=== PATIENT | female | born 1975 | race Caucasian/White ===

== ENCOUNTER → 2017-02-23 | Outpatient (CLI) | payer BC ==
--- NOTE | 2017-02-24 12:25 | WWHP ---
DATE OF SERVICE: 02/23/2017 CHIEF COMPLAINT: The patient is here for her routine gynecologic exam and mammogram. HPI: This is a 42-year-old G2, P1-1-0-2 with an LMP of 02/04/2017. The patient' s is status post vasectomy and she is without gynecologic complaints. PAST MEDICAL HISTORY: Basal cell carcinoma of the back removed in 2012 and history of kidney stones in 2014. MEDICATIONS: None. Allergies to Keflex. PAST SURGICAL HISTORY: in 2001. Removal of skin lesion in 2012. 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 SOCIAL HISTORY: She denies tobacco and drug use and has about 2 alcoholic drinks per month. 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 Family history is unchanged from the 2015 H&P. REVIEW OF SYSTEMS: She has gain 4 pounds over the last 2 years. She denies respiratory, cardiac or GI problems. PHYSICAL EXAM: Blood pressure 109/58, height 5 feet 11 inches, weight 155 pounds, temperature 98.5, pulse 71. This is a well-developed, well nourished white female who is alert and oriented x3 in no acute distress. HEENT is within normal limits. NECK: Supple without mass or thyromegaly. CHEST AND LUNGS: Clear to auscultation. HEART: Regular rate and rhythm. Breasts are without mass or discharge. Axillary exam is negative for adenopathy. BACK: Negative for CVA tenderness. ABDOMEN: Soft, nontender without palpable masses. PELVIC EXAM: Normal external genitalia. Cervix and vagina appear normal. The cervix was slightly friable upon doing a PAP smear but there are no lesions noted. There is no evidence of prolapse. The uterus is anterior, nongravid size and nontender. There are no palpable adnexal masses or tenderness. Rectal exam is negative for mass or tenderness and is negative of occult blood. EXTREMITIES: Nontender. IMPRESSION: A 42-year-old gynecologically healthy female whose is status post vasectomy. PLAN: 1. PAP smear was performed. 2. Self-breast examination was discussed. 3. Mammogram will be done today. 4. Osteoporosis prevention was discussed. 5. She will return in 1 year. KHANH
--- NOTE | 2017-02-25 08:17 | MM ---
Reason for exam: screening (asymptomatic). Last mammogram was performed 2 years and 4 months ago. History: Patient history of other cancer. Took hormonal contraceptives for 8 years. Physical Findings: A clinical breast exam by your physician is recommended on an annual basis and results should be correlated with mammographic findings. MG 3D Screening Mammo W/Cad Bilateral CC and MLO view(s) were taken. Prior study comparison: October 23, 2014, bilateral MG screening mammo w CAD. April 03, 2013, bilateral digital screening mammo w/CAD. The breast tissue is heterogeneously dense. This may lower the sensitivity of mammography. No significant changes when compared with prior studies. ASSESSMENT: Negative, BI-RAD 1 RECOMMENDATION: Routine screening mammogram of both breasts in 1 year.
== END ==
LOC: WWCWWP 13:08
PROVIDERS: ATTEND Obstetrics & Gynecology
DX: Z12.31 Encounter for screening mammogram for malignant neoplasm of breast (principal)
CPT/HCPCS: 77063; G0202

== ENCOUNTER → 2019-05-02 | Outpatient (CLI) | payer BC ==
[2019-05-02 16:11] VITALS: BP 105/60; PULSE 68; RESP 16; TEMP 98.3; BMI 19.2
--- NOTE | 2019-05-02 16:48 | P.HPOB ---
History of Present Illness H&P Date: 05/02/19 Chief Complaint: The patient is here for her routine gynecologic exam and ma mmogram. This is a 44-year-old with an LMP of 04/17/19. The patient's is status post vasectomy. She is without gynecologic complaints and states her menses are regular every month. Review of Systems The patient has lost 17 pounds over the last year. She denies respiratory, cardiac, or G.I. problems. Past Medical History Past Medical History: Cancer Additional Past Medical History / Comment(s): Basal cell skin cancer in 2012 removed from her back. Kidney stones. 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 History of Any Multi-Drug Resistant Organisms: None Reported Past Surgical History: Section Additional Past Surgical History / Comment(s): Removal of skin lesion in 2012. 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 - Past Family History Mother Family Medical History: Cancer Additional Family Medical History / Comment(s): Cervical and uterine cancer. Father Additional Family Medical History / Comment(s): Heart valve disease. A grandfather had lung cancer. A grandmother had melanoma. Another grandmother had diabetes. Medications and Allergies Home Medications Medication Instructions Recorded Confirmed Type No Known Home Medications 05/02/19 05/02/19 History Allergies Allergy/AdvReac Type Severity Reaction Status Date / Time cephalexin [From Keflex] Allergy Swelling Unverified 05/02/19 16:11 Exam Vital Signs Temp Pulse Resp BP Pulse Ox 05/02/19 16:01 98.3 F 68 16 105/60 93 L Intake and Output 05/02/19 05/02/19 05/02/19 06:59 14:59 22:59 Other: Weight 62.596 kg Height 5'11", weight 138 pounds, BMI 19.2. This is a well-developed well-nourished white female who is alert and oriented times 3 in no acute distress. HEENT: Within normal limits. NECK: Supple without mass or thyromegaly. CHEST AND LUNGS: Clear to auscultation. HEART: Regular rate and rhythm. BREASTS: Are without mass or discharge. AXILLARY EXAM: Negative for adenopathy. BACK: Negative for CVA tenderness. ABDOMEN: Soft, nontender, without palpable masses. PELVIC EXAM: Normal external genitalia. Cervix and vagina appear normal. There is no unusual discharge. There is no evidence of prolapse. The uterus is midposition, nongravid size and nontender. There are no palpable adnexal masses or tenderness. RECTAL EXAM: negative for mass or tenderness and is negative for occult blood. EXTREMITIES: Nontender. IMPRESSION: 1. 44-year-old female whose is status post vasectomy with normal gynecologic exam. PLAN: 1. Pap smear was performed. 2. Self breast awareness was discussed with the patient. 3. Screening mammogram was done today. 4. Osteoporosis prevention was discussed. I have stressed the importance of adequate calcium, vitamin D and regular exercise. Recommended amounts of calcium and vitamin D were also discussed. 5. She was advised to return in one year for her annual well woman exam.
--- NOTE | 2019-05-03 12:12 | MM ---
Reason for exam: screening (asymptomatic). Last mammogram was performed 2 years and 2 months ago. History: Patient history of other cancer. Took hormonal contraceptives for 8 years. Physical Findings: A clinical breast exam by your physician is recommended on an annual basis and results should be correlated with mammographic findings. MG 3D Screening Mammo W/Cad Bilateral CC and MLO view(s) were taken. Prior study comparison: February 23, 2017, bilateral MG 3d screening mammo w/cad. October 23, 2014, bilateral MG screening mammo w CAD. The breast tissue is extremely dense which could obscure a lesion on mammography. No significant changes when compared with prior studies. ASSESSMENT: Negative, BI-RAD 1 RECOMMENDATION: Routine screening mammogram of both breasts in 1 year.
--- NOTE | 2019-05-10 12:06 | P.PN ---
Progress Note - Text Progress Note Date: 05/10/19 OUTPATIENT FOLLOW-UP NOTE TEST(S)/RESULTS: test results from 05/02/2019 include negative Pap smear and benign mammogram. METHOD OF NOTIFICATION: a message with these results was left on the patient's voice mail. PATIENT COMMENTS: DIAGNOSIS: negative Pap smear and benign mammogram. DISCUSSION: PLAN: the patient is to return in one year for her annual well woman exam.
== END | disposition home or self-care (01) ==
LOC: WWCWWP 15:48
PROVIDERS: ATTEND Obstetrics & Gynecology
DX: Z12.31 Encounter for screening mammogram for malignant neoplasm of breast (principal)
CPT/HCPCS: 77063; 77067

== ENCOUNTER 2020-05-24 18:42 | Emergency (ER) | payer BC ==
[2020-05-24 18:45] VITALS: TEMP 98.4
[2020-05-24] MEDS ORDERED: SODIUM CHLORIDE 0.9% 1,000 ML IV STA ×2 (19:10)
[2020-05-24] MEDS ORDERED: SODIUM CHLORIDE 0.9% 500 ML 500 ML IV STA (19:10)
[2020-05-24] MEDS ORDERED: MORPHINE SULFATE 4 MG/ML SYRINGE IV STA (19:10)
[2020-05-24] MEDS ORDERED: ONDANSETRON 4 MG/2 ML VIAL IVP STA (19:10)
[2020-05-24] MEDS ORDERED: KETOROLAC 15 MG/ML 1 ML VIAL IVP STA (19:10)
--- NOTE | 2020-05-24 19:21 | ED ---
Abdominal Pain HPI - General Chief Complaint: Abdominal Pain Stated Complaint: Kidney stone Time Seen by Provider: 05/24/20 18:51 Source: patient, RN notes reviewed, old records reviewed Mode of arrival: ambulatory Limitations: no limitations - History of Present Illness Initial Comments: This is a 45-year-old female DF. She presents today for evaluation regarding abdominal pain. Pain and feels as a prior kidney stone. Patient poor strain currently secondary to active vomiting she is able to say that she has never vomited from kidney stones before but the pain this time is severe and started last night. Denying fevers. MD Complaint: abdominal pain, flank pain -: days(s) Location: bilateral flank Radiation: none Migration to: bilateral flank Severity: severe Severity scale (1-10): 10 Quality: stabbing, aching Consistency: constant Improves With: nothing Worsens With: nothing - Related Data Home Medications Medication Instructions Recorded Confirmed No Known Home Medications 05/02/19 05/02/19 Allergies Allergy/AdvReac Type Severity Reaction Status Date / Time cephalexin [From Keflex] Allergy Swelling Verified 05/24/20 18:45 Review of Systems ROS Statement: Those systems with pertinent positive or pertinent negative responses have been documented in the HPI. ROS Other: All systems not noted in ROS Statement are negative. Past Medical History Past Medical History: Cancer Additional Past Medical History / Comment(s): Basal cell skin cancer in 2012 re moved from her back. Kidney stones. 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 History of Any Multi-Drug Resistant Organisms: None Reported Past Surgical History: Section Additional Past Surgical History / Comment(s): Removal of skin lesion in 2012. Past Psychological History: No Psychological Hx Reported Smoking Status: Never smoker Past Alcohol Use History: Occasional Past Drug Use History: None Reported - Past Family History Mother Family Medical History: Cancer Additional Family Medical History / Comment(s): Cervical and uterine cancer. Father Additional Family Medical History / Comment(s): Heart valve disease. A grandfather had lung cancer. A grandmother had melanoma. Another grandmother had diabetes. General Exam Limitations: no limitations General appearance: alert, in no apparent distress Head exam: Present: atraumatic, normocephalic, normal inspection Eye exam: Present: normal appearance, PERRL, EOMI. Absent: scleral icterus, conjunctival injection, periorbital swelling ENT exam: Present: normal exam, mucous membranes moist Neck exam: Present: normal inspection. Absent: tenderness, meningismus, lymphadenopathy Respiratory exam: Present: normal lung sounds bilaterally. Absent: respiratory distress, wheezes, rales, rhonchi, stridor Cardiovascular Exam: Present: regular rate, normal rhythm, normal heart sounds. Absent: systolic murmur, diastolic murmur, rubs, gallop, clicks GI/Abdominal exam: Present: soft, normal bowel sounds. Absent: distended, tenderness, guarding, rebound, rigid Extremities exam: Present: normal inspection, full ROM, normal capillary refill. Absent: tenderness, pedal edema, joint swelling, calf tenderness Back exam: Present: normal inspection Neurological exam: Present: alert, oriented X3, CN II-XII intact Psychiatric exam: Present: normal affect, normal mood Skin exam: Present: warm, dry, intact, normal color. Absent: rash Course Vital Signs 05/24/20 18:43 Temperature 98.4 F Pulse Rate 56 L Respiratory 18 Rate Blood Pressure 145/76 O2 Sat by Pulse 99 Oximetry - Reevaluation(s) Reevaluation #1: 05/24/20 19:21 Medical record is reviewed Reevaluation #2: 05/24/20 19:21 Pain is improved Reevaluation #3: 05/24/20 20:35 Patient symptoms are again significantly improved, patient feels better currently, informed of results and questions are answered Medical Decision Making - Medical Decision Making 45 female DF for evaluation of flank pain positive kidney stone. Patient will be given pain control - Lab Data Result diagrams: 05/24/20 19:19 05/24/20 19:19 Lab Results 05/24/20 05/24/20 Range/Units 19:19 19:19 WBC 7.2 (3.8-10.6) k/uL RBC 4.08 (3.80-5.40) m/uL Hgb 12.9 (11.4-16.0) gm/dL Hct 39.7 (34.0-46.0) % MCV 97.2 (80.0-100.0) fL MCH 31.6 (25.0-35.0) pg MCHC 32.5 (31.0-37.0) g/dL RDW 12.5 (11.5-15.5) % Plt Count 293 (150-450) k/uL Neutrophils % 61 % Lymphocytes % 27 % Monocytes % 7 % Eosinophils % 2 % Basophils % 1 % Neutrophils # 4.4 (1.3-7.7) k/uL Lymphocytes # 1.9 (1.0-4.8) k/uL Monocytes # 0.5 (0-1.0) k/uL Eosinophils # 0.2 (0-0.7) k/uL Basophils # 0.1 (0-0.2) k/uL Sodium 138 (137-145) mmol/L Potassium 4.0 (3.5-5.1) mmol/L Chloride 105 (98-107) mmol/L Carbon Dioxide 27 (22-30) mmol/L Anion Gap 6 mmol/L BUN 21 H (7-17) mg/dL Creatinine 0.80 (0.52-1.04) mg/dL Est GFR (CKD-EPI)AfAm >90 (>60 ml/min/1.73 sqM) Est GFR (CKD-EPI)NonAf 89 (>60 ml/min/1.73 sqM) Glucose 109 H (74-99) mg/dL Calcium 9.7 (8.4-10.2) mg/dL Total Bilirubin 0.3 (0.2-1.3) mg/dL AST 22 (14-36) U/L ALT 13 (4-34) U/L Alkaline Phosphatase 64 (38-126) U/L Total Protein 7.0 (6.3-8.2) g/dL Albumin 4.6 (3.5-5.0) g/dL Amylase 69 (30-110) U/L Lipase 158 (23-300) U/L - Radiology Data Radiology results: report reviewed (CT abdomen and pelvis is positive for kidney stones), image reviewed Disposition Clinical Impression: Right ureteral calculus, Abdominal pain Disposition: HOME SELF-CARE Condition: Good Instructions (If sedation given, give patient instructions): Kidney Stones (ED) Is patient prescribed a controlled substance at d/c from ED?: No Referrals: David Saucedo MD [Primary Care Provider] - 1-2 days
[2020-05-24 19:32] LABS: Basophils # (A) 0.1 k/uL (0-0.2); Basophils % (A) 1 %; Eosinophils # (A) 0.2 k/uL (0-0.7); Eosinophils % (A) 2 %; HCT 39.7 % (34.0-46.0); HGB 12.9 gm/dL (11.4-16.0); Lymphocytes # (A) 1.9 k/uL (1.0-4.8); Lymphocytes % (A) 27 %; MCH 31.6 pg (25.0-35.0); MCHC 32.5 g/dL (31.0-37.0); MCV 97.2 fL (80.0-100.0); Monocytes # (A) 0.5 k/uL (0-1.0); Monocytes % (A) 7 %; Neutrophils # (A) 4.4 k/uL (1.3-7.7); Neutrophils % (A) 61 %; Platelet Count 293 k/uL (150-450); RBC 4.08 m/uL (3.80-5.40); RDW 12.5 % (11.5-15.5); WBC 7.2 k/uL (3.8-10.6)
[2020-05-24 19:38] LABS: ALT 13 U/L (4-34); AST 22 U/L (14-36); African American GFR (CKD) >90 (>60 ml/min/1.73 sqM); Albumin 4.6 g/dL (3.5-5.0); Alkaline Phosphatase 64 U/L (38-126); Amylase 69 U/L (30-110); Anion Gap 6 mmol/L; Blood Urea Nitrogen 21 mg/dL (7-17); Calcium 9.7 mg/dL (8.4-10.2); Carbon Dioxide 27 mmol/L (22-30); Chloride 105 mmol/L (98-107); Glucose 109 mg/dL (74-99); Non-African American GFR(CKD) 89 (>60 ml/min/1.73 sqM); Sodium 138 mmol/L (137-145); Total Bilirubin 0.3 mg/dL (0.2-1.3)
--- NOTE | 2020-05-24 20:09 | CT ---
EXAMINATION TYPE: CT abdomen pelvis wo con DATE OF EXAM: 05/24/2020 COMPARISON: None HISTORY: Right flank pain CT DLP: 441 mGycm Automated exposure control for dose reduction was used. Images were obtained from the diaphragm to the floor the pelvis with no contrast. Lung bases are clear of consolidation. There is no pleural effusion. Heart is normal. There is no per icardial effusion. Liver spleen stomach pancreas appear intact. Bile ducts are not dilated. Gallbladd er appears normal. There is no adrenal mass. There are numerous bilateral renal calculi that measure up to 4 mm. There i s right-sided hydronephrosis and hydroureter. There appears to be a stone in the lower right ureter i n the pelvis at the level of the acetabulum measuring 4 mm. The bladder distends smoothly. Uterus is anteverted. There is 4 similar mass on the anterior wall of the uterus consistent with fibroid. The cul-de-sac is clear. There is no inguinal hernia. Appendix is medial and appears normal. Lumbar v ertebra have normal alignment. Posterior elements are intact. Bony pelvis is intact. Hip joints are i ntact. There is no mesenteric edema. There is no ascites. There is no free air. There is no sign of a bowel obstruction. Fecal pattern is fairly normal. IMPRESSION: . Bilateral multiple renal calculi. Obstructing calculus lower right ureter with right-sided hydronep hrosis and hydroureter.
[2020-05-24] MEDS ORDERED: ACET/COD 300 MG/30 MG STARTER PACK 6 TAB BTL PO STA (20:34)
[2020-05-24] MEDS ORDERED: ONDANSETRON 4 MG ODT STARTER PACK 2 TAB BTL PO STA (20:34)
[2020-05-24] MEDS ORDERED: IBUPROFEN 600 MG STARTER PACK 4 TAB BTL PO STA (20:34)
[2020-05-24] MEDS ORDERED: TAMSULOSIN 0.4 MG CAP.ER.24H PO STA (20:34)
[2020-05-24] MEDS ORDERED: Acetaminophen-Codeine 300-30mg TAB PO STA (20:34)
[2020-05-24] MEDS ORDERED: ONDANSETRON ODT 4 MG TAB PO STA (20:34)
[2020-05-24 21:09] VITALS: BP 129/77; PULSE 61; RESP 20
[2020-05-24 21:20] LABS: Appearance,Urine Clear (Clear); Bacteria,Urine Rare /hpf; Bilirubin,Urine Negative (Negative); Blood,Urine Large (Negative); Calcium Oxalate Crystals,Urine Rare /hpf; Color,Urine Light Yellow; Glucose,Urine (UA) Negative (Negative); Ketones,Urine Negative (Negative); Leukocyte Esterase,Urine Negative (Negative); Mucus,Urine Rare /hpf; Nitrite,Urine Negative (Negative); PH, Urine 6.5 (5.0-8.0); Protein,Urine Negative (Negative); RBC,Urine >182 /hpf (0-5); Specific Gravity,Urine 1.011 (1.001-1.035); Squamous Epithelial Cell,Urine <1 /hpf (0-4); Urobilinogen,Urine <2.0 mg/dL (<2.0); WBC,Urine 8 /hpf (0-5)
== END 2020-05-24 21:08 | disposition home or self-care (01) ==
LOC: EC 18:42
DX: N20.0 Calculus of kidney (principal); Z85.828 Personal history of other malignant neoplasm of skin; Z88.1 Allergy status to other antibiotic agents; Z80.49 Family history of malignant neoplasm of other genital organs
CPT/HCPCS: 36415; 80053; 82150; 83690; 85025; 81001; 74176; 99285; 96374; 96375 ×2; 96361; J2270; J2405; J1885; S0119

== ENCOUNTER 2020-08-09 15:51 | Emergency (ER) | payer BC ==
[2020-08-09 16:01] VITALS: RESP 16; TEMP 98
[2020-08-09] MEDS ORDERED: MORPHINE SULFATE 4 MG/ML SYRINGE IVP STA (16:13)
--- NOTE | 2020-08-09 16:17 | ED ---
Upper Extremity HPI - General Chief Complaint: Extremity Injury, Upper Stated Complaint: L Arm Injury Time Seen by Provider: 08/09/20 16:06 Source: patient Mode of arrival: wheelchair Limitations: no limitations - History of Present Illness Initial Comments: 45-year-old female presenting to the emergency department with a chief complaint of left arm pain. Patient reports the incident occurred about one hour prior to arrival while she was hiking, slipped and fell on outstretched hand. Patient reports obvious bony deformity in the left distal forearm. Patient reports sharp pain but she still able to move her fingers. Denies any numbness or tingl ing. Denies taking medication to alleviate the symptoms. States any movement exacerbates the pain. Reports limited range of motion in the wrist and hand due to pain. - Related Data Home Medications Medication Instructions Recorded Confirmed No Known Home Medications 05/02/19 05/02/19 Allergies Allergy/AdvReac Type Severity Reaction Status Date / Time cephalexin [From Keflex] Allergy Swelling Verified 05/24/20 18:45 Review of Systems ROS Statement: Those systems with pertinent positive or pertinent negative responses have been documented in the HPI. ROS Other: All systems not noted in ROS Statement are negative. Past Medical History Past Medical History: Cancer Additional Past Medical History / Comment(s): Basal cell skin cancer in 2013 removed from her back. Kidney stones. 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 History of Any Multi-Drug Resistant Organisms: None Reported Past Surgical History: Section Additional Past Surgical History / Comment(s): Removal of skin lesion in 2012. Past Psychological History: No Psychological Hx Reported Smoking Status: Never smoker Past Alcohol Use History: Occasional Past Drug Use History: None Reported - Past Family History Mother Family Medical History: Cancer Additional Family Medical History / Comment(s): Cervical and uterine cancer. Father Additional Family Medical History / Comment(s): Heart valve disease. A grandfather had lung cancer. A grandmother had melanoma. Another grandmother had diabetes. General Exam Limitations: no limitations General appearance: alert, in no apparent distress Head exam: Present: atraumatic, normocephalic, normal inspection Eye exam: Present: normal appearance, PERRL, EOMI Pupils: Present: normal accommodation ENT exam: Present: normal exam, normal oropharynx, mucous membranes moist, TM's normal bilaterally, normal external ear exam Neck exam: Present: normal inspection, full ROM. Absent: tenderness Respiratory exam: Present: normal lung sounds bilaterally. Absent: respiratory distress, wheezes, rales Cardiovascular Exam: Present: regular rate, normal rhythm, normal heart sounds Extremities exam: Present: tenderness (Tenderness at the injury site), normal capillary refill, other (+2 ulnar and radial pulses bilateral.). Absent: normal inspection (Obvious bony deformity of the left distal forearm.), full ROM (L imited range of motion due to pain), pedal edema, joint swelling, calf tenderness Back exam: Present: normal inspection, full ROM. Absent: tenderness, CVA tenderness (R), CVA tenderness (L) Neurological exam: Present: alert, oriented X3 Psychiatric exam: Present: normal affect, normal mood Skin exam: Present: warm, dry, intact, normal color Course Vital Signs 08/09/20 08/09/20 08/09/20 15:58 16:59 18:24 Temperature 98.0 F Pulse Rate 62 59 L Respiratory 16 16 Rate Blood Pressure 119/61 109/57 103/53 O2 Sat by Pulse 100 98 Oximetry Procedures - Nerve Block Consent Obtained: verbal consent Local Anesthetic Used: Lidocaine 1% Amount of anesthesia used: 10 Side: left Nerve Blocks: hematoma block Procedure Successful: Yes Complications: none Patient Tolerated Procedure: well, no complications - Orthopedic Fracture Reduction Fracture #1 Consent Obtained: verbal consent Side: left Fracture Reduction Location: radius Analgesia: hematoma block Technique: direct manipulation Post Reduction X-rays Demonstrate: acceptable reduction Post-Reduction Neuro Exam: intact Post-Reduction Vascular Exam: intact Splint Applied: Yes Patient Tolerated Procedure: well, no complications - Orthopedic Splinting/Casting Injury #1 Side: left Upper Extremity Injury Location: short arm Upper Extremity Immobilizer: volar splint, Travis wrap, synthetic pre-padded splint Other Orthopedic Equipment: other (Sling) Medical Decision Making - Medical Decision Making 45-year-old female presenting to the emergency department with a chief complaint of left arm pain. On physical examination, patient is neurovascularly intact but she has a obvious bony deformity in the distal left forearm. X-ray reveals a displaced distal radial fracture. Initially IV access was obtained for possible procedural sedation. However hematoma block was performed instead which worked well. Also, was able to perform a reduction of the fracture with improved alignment on repeat x-ray. Patient was also given morphine for pain. Patient did report improvement in symptoms. Patient was otherwise neurovascularly intact before and after reduction. Splint was applied and patient was advised to follow-up with orthopedics. I spoke with who will see the patient on Wednesday. Patient was also given Tylenol 3 starter pack. Return parameters thoroughly discussed the patient was understanding and agreeable. Case discussed with physician. - Lab Data Result diagrams: 08/09/20 16:25 08/09/20 16: Lab Results 08/09/20 08/09/20 Range/Units 16: 16:25 WBC 7.2 (3.8-10.6) k/uL RBC 4.26 (3.80-5.40) m/uL Hgb 13.2 (11.4-16.0) gm/dL Hct 40.0 (34.0-46.0) % MCV 94.0 (80.0-100.0) fL MCH 31.1 (25.0-35.0) pg MCHC 33.1 (31.0-37.0) g/dL RDW 12.5 (11.5-15.5) % Plt Count 282 (150-450) k/uL MPV 6.7 Neutrophils % 68 % Lymphocytes % 22 % Monocytes % 4 % Eosinophils % 1 % Basophils % 1 % Neutrophils # 4.9 (1.3-7.7) k/uL Lymphocytes # 1.6 (1.0-4.8) k/uL Monocytes # 0.3 (0-1.0) k/uL Eosinophils # 0.1 (0-0.7) k/uL Basophils # 0.1 (0-0.2) k/uL Sodium 136 L (137-145) mmol/L Potassium 4.3 (3.5-5.1) mmol/L Chloride 105 (98-107) mmol/L Carbon Dioxide 24 (22-30) mmol/L Anion Gap 7 mmol/L BUN 25 H (7-17) mg/dL Creatinine 0.96 (0.52-1.04) mg/dL Est GFR (CKD-EPI)AfAm 82 (>60 ml/min/1.73 sqM) Est GFR (CKD-EPI)NonAf 71 (>60 ml/min/1.73 sqM) Glucose 124 H (74-99) mg/dL Calcium 9.8 (8.4-10.2) mg/dL Total Bilirubin 0.5 (0.2-1.3) mg/dL AST 22 (14-36) U/L ALT 15 (4-34) U/L Alkaline Phosphatase 49 (38-126) U/L Total Protein 7.3 (6.3-8.2) g/dL Albumin 4.6 (3.5-5.0) g/dL Disposition Clinical Impression: Distal radius fracture, left, Fracture of left upper extremity, Fall Disposition: HOME SELF-CARE Condition: Stable Instructions (If sedation given, give patient instructions): Wrist Fracture in Adults (ED) Additional Instructions: Follow-up with orthopedics. Return to emergency department if symptoms worsen. Take the medication as directed. Is patient prescribed a controlled substance at d/c from ED?: No Referrals: David Saucedo MD [Primary Care Provider] - 1-2 days Rocky Harley DO [Doctor of Osteopathic Medicine] - 1-2 days Time of Disposition: 18:10
[2020-08-09 16:38] LABS: Basophils # (A) 0.1 k/uL (0-0.2); Basophils % (A) 1 %; Eosinophils # (A) 0.1 k/uL (0-0.7); Eosinophils % (A) 1 %; HGB 13.2 gm/dL (11.4-16.0); Lymphocytes # (A) 1.6 k/uL (1.0-4.8); Lymphocytes % (A) 22 %; MCH 31.1 pg (25.0-35.0); MCHC 33.1 g/dL (31.0-37.0); Mean Platelet Volume 6.7; Monocytes # (A) 0.3 k/uL (0-1.0); Monocytes % (A) 4 %; Neutrophils # (A) 4.9 k/uL (1.3-7.7); Neutrophils % (A) 68 %; Platelet Count 282 k/uL (150-450); RBC 4.26 m/uL (3.80-5.40); RDW 12.5 % (11.5-15.5); WBC 7.2 k/uL (3.8-10.6)
[2020-08-09] MEDS ORDERED: LIDOCAINE 1% INJ 10MG/ML (20 ML MDV) SQ ONE (16:46)
--- NOTE | 2020-08-09 16:47 | XR ---
EXAM: XR Left Forearm, 2 Views CLINICAL HISTORY: ITS.[email or web address] XR Reason: obvious bony deformity, fall TECHNIQUE: Frontal and lateral views of the left forearm. COMPARISON: None FINDINGS: Bones/joints: Displaced fractures of the distal left radial metaphysis with dorsal angulation. No dislocation. Soft tissues: Soft tissue swelling. IMPRESSION: Displaced fractures of the distal left radial metaphysis with dorsal angulation.
[2020-08-09 16:51] LABS: Albumin 4.6 g/dL (3.5-5.0); Calcium 9.8 mg/dL (8.4-10.2); Potassium 4.3 mmol/L (3.5-5.1); Total Bilirubin 0.5 mg/dL (0.2-1.3); Total Protein 7.3 g/dL (6.3-8.2)
--- NOTE | 2020-08-09 17:54 | XR ---
EXAM: XR Left Forearm, 2 Views CLINICAL HISTORY: ITS.REASON XR Reason: repeat after splint TECHNIQUE: Frontal and lateral views of the left forearm. COMPARISON: Same day left forearm radiographs FINDINGS: Bones/joints: Improved alignment of the distal left radial metaphysis fracture status post reduction. Soft tissues: Soft tissue swelling. Other findings: Splint in place. IMPRESSION: Improved alignment of the distal left radial metaphysis fracture status post reduction.
[2020-08-09] MEDS ORDERED: ACET/COD 300 MG/30 MG STARTER PACK 6 TAB BTL PO STA (18:10)
[2020-08-09 18:27] VITALS: BP 103/53; PULSE 59
== END 2020-08-09 18:27 | disposition home or self-care (01) ==
LOC: EC 15:51
DX: S52.502A Unspecified fracture of the lower end of left radius, initial encounter for closed fracture (principal); Z88.1 Allergy status to other antibiotic agents; Z85.828 Personal history of other malignant neoplasm of skin; Z80.8 Family history of malignant neoplasm of other organs or systems; W01.0XXA Fall on same level from slipping, tripping and stumbling without subsequent striking against object, initial encounter
CPT/HCPCS: 36415; 80053; 85025; 73090; 99283; 96374; 25605; J2270; J2001

== ENCOUNTER → 2020-11-20 | Outpatient (CLI) | payer BC ==
[2020-11-20 08:10] VITALS: BP 116/74; PULSE 57; RESP 16; TEMP 98
--- NOTE | 2020-11-20 08:52 | P.PN ---
Progress Note - Text Progress Note Date: 11/20/20 Chief Complaint: Left breast lump noticed in 1 week ago. HPI: This is a 45-year-old with an LMP of 11/07/2020. Her last well woman examination was on 05/02/2019 and her last mammogram was on the same date. That mammogram was negative. The patient states she noticed a lump about the size of a small marble on the left side 1 week ago. She denies pain at rest, but she states it is slightly tender. She denies any nipple discharge or blood. Since her last well woman examination on 05/02/2019, she had an episode of kidney stones and had a wrist fracture which did not require surgery. ROS: She is gained about 10 pounds over the past 1-1/2 years. She denies respiratory, cardiac, or GI problems. PE: Blood pressure: 116/74, Height: 5 feet 10 inches, Weight: 148 pounds, BMI 21.2, Temperature: 98.0, Pulse:57. This is a well developed, well nourished, white female who is alert and orientedx3, in no acute distress. Breasts: Symmetric in appearance. There is no nipple inversion. There is no nipple discharge. The left breast has a somewhat prominent tail of the breast in the upper outer quadrant with a small rubbery mass measuring impression 1.5 cm at the lateral aspect of the tail of the breast at the 1 to 2 o'clock position. The small lump is mobile and minimally tender. There is moderate fibrous tissue throughout the breast on the left side. There are no other masses noted. The right breast also has moderate fibrous type tissue throughout the breast. The tail of the right breast is less prominent than the left breast. There are no palpable discrete masses in the right breast. The right breast is nontender. Axillary exam: There are no palpable masses bilaterally and there is no tenderness. Impression: 1. 45-year-old premenopausal female with a palpable 1.5 cm lump in the lateral part of the left breast at the 1 to 2 o'clock position. Differential diagnosis will include breast cyst, fibrocystic change, fibrous tissue pushed up by the pectoral muscle and tail of the breast, or other breast neoplasm. 2. Some family history of breast cancer in a paternal grandmother. Plan: 1. The patient is due for a mammogram. A bilateral diagnostic mammogram will be done today with attention given to the area of the lump at the 1 to 2 o'clock position. A marker was placed at the time of my exam. Left breast ultrasound, if indicated. 2. The patient was advised to return at a later date for her more complete well woman examination. Time spent with the patient: 15 minutes
--- NOTE | 2020-11-20 11:51 | MM ---
Reason for exam: additional evaluation requested from prior study. Last mammogram was performed 1 year and 7 months ago. History: Patient history of other cancer. Took hormonal contraceptives for 8 years. Physical Findings: Nurse Summary: 1.5cm nodule in the left breast at 1-2 o'clock (Dr. Agrawal). MG 3D Diag Mammo W/Cad MARLIN Bilateral CC and MLO view(s) were taken. XCCL and spot compression CC view(s) were taken of the left breast. Prior study comparison: May 02, 2019, bilateral MG 3d screening mammo w/cad. February 23, 2017, bilateral MG 3d screening mammo w/cad. The breast tissue is extremely dense which could obscure a lesion on mammography. Nodular density 12 o'clock 7cm from nipple. These results were verbally communicated with the patient and result sheet given to the patient on 11/20/20. ASSESSMENT: Incomplete: need additional imaging evaluation, BI-RAD 0 RECOMMENDATION: Ultrasound of the left breast.
--- NOTE | 2020-11-20 11:54 | USB ---
Reason for exam: additional evaluation requested from abnormal screening. History: Patient history of other cancer. Took hormonal contraceptives for 8 years. US Breast Limited LT Left limited breast ultrasound including focal area of concern, retroareolar and axilla demonstrates a 1.2 x 1.1 x 0.7cm oval, questionable lymph node at 1 o'clock, probable inflamed lymph node, 3 month follow up recommended, a 0.7 x 0.9 x 0.4cm oval, mixed lesion at 6 o'clock for which a biopsy is recommended and a 1.1 x 1.4 x 0.6cm oval lymph node at the axilla. These results were verbally communicated with the patient and result sheet given to the patient on 11/20/20. ASSESSMENT: Suspicious, BI-RAD 4 RECOMMENDATION: Ultrasound core biopsy of the left breast. [address] Agrawal's office with mammographic findings and has scheduled an appointment for the patient for 11/29/20 at 7:[address] Andujar. Biopsy scheduled for 12/04/20 at 9:30. PRELIMINARY REPORT CALLED AND FAXED TO DR. ANDUJAR ON 11/20/20.
== END ==
LOC: WWCWWP 07:57
PROVIDERS: ATTEND Obstetrics & Gynecology
DX: N63.20 Unspecified lump in the left breast, unspecified quadrant (principal); Z80.3 Family history of malignant neoplasm of breast
CPT/HCPCS: 77062; 77066

== ENCOUNTER → 2020-11-29 | Outpatient (CLI) | payer BC ==
[2020-11-29 07:24] VITALS: BP 110/72; PULSE 52; RESP 16; TEMP 98.2
--- NOTE | 2020-11-29 08:24 | P.GSHP ---
History of Present Illness H&P Date: 11/29/20 Chief Complaint: Abnormal left breast mammogram and ultrasound/mass left breast Monalisa is a 45 year old white female seen in consultation for Dr. Saucedo regarding a mass in her left breast which she noted approximately 3 weeks ago. This initiated a bilateral mammogram which then led to a left breast ultrasound. The bilateral mammogram was performed and [id number]. The tissue was noted to be tense and there was a nodular density in the 12:00 region. An ultrasound was then performed. On the ultrasound the patient was noted to have a 1.2 x 1.1 cm questionable lymph node at 1:00. She was also noted to have a pigmented 0.4 cm mixed lesion at 6:00 through which a biopsy was recommended and a 1.4 cm lymph node in the axilla. The patient had a COVID vaccine the second dose the end of September. She had a headache and fever after the vaccine. She did not note any onther node swelling. She has not noted any pain in her breast. She has not noted any nipple discharge or skin changes. She had a left axillary node biopsied as a teenager which was benign. She states her reast get tender prior to her periods. Her LMP November 07. Caffeine: 2 cups of coffee per day Nicotine: Negative Chocolate: The daily Hormones: Negative for Family history: paternal grandmother: breast cancer maternal grandfather: esophageal cancer maternal grandmother: melanoma mother: cervical cancer patient: Basal cell carcinoma Hormonal history: Menarche: 15 , breast fed: yes, age at first : 27 periods regular, LMP November 07 BCP: 9 years stopped 20 years ago hormones: none Surgical history: 1 Mohs procedure for a left shoulder basal cell carcinoma Medical History: kidney stones wrist fracture July 2020 Social History: nicotine: Negative Alcohol: twice a month drugs: none - Constitutional Constitutional: Denies chills, Denies fever - EENT Eyes: denies blurred vision, denies pain Ears: deny: decreased hearing, tinnitus Ears, nose, mouth and throat: Denies headache, Denies sore throat - Breasts Breasts: bilateral: as per HPI - Cardiovascular Cardiovascular: Denies chest pain, Denies shortness of breath - Respiratory Respiratory: Denies cough, Denies 7 - Gastrointestinal Gastrointestinal: Denies abdominal pain, Denies diarrhea, Denies nausea, Denies vomiting - Genitourinary (Female) Genitourinary: Reports kidney stones - Menstruation Menstruation: Reports period normal - Musculoskeletal Musculoskeletal: Denies myalgias - Integumentary Comment: basal cell ca left shoulder - Neurological Neurological: Denies numbness, Denies weakness - Psychiatric Psychiatric: Denies anxiety, Denies depression - Endocrine Endocrine: Denies fatigue, Denies weight change - Hematologic/Lymphatic Comment: none - Allergic/Immunologic Allergic/Immunologic: Reports as per HPI Past Medical History Past Medical History: Cancer Additional Past Medical History / Comment(s): Basal cell skin cancer in 2013 removed from her back. Kidney stones. History of Any Multi-Drug Resistant Organisms: None Reported Past Surgical History: Section Additional Past Surgical History / Comment(s): Removal of skin lesion in 2012. Past Psychological History: No Psychological Hx Reported Smoking Status: Never smoker Past Alcohol Use History: Occasional Past Drug Use History: None Reported - Past Family History Mother Family Medical History: Cancer Additional Family Medical History / Comment(s): Cervical and uterine cancer. Father Additional Family Medical History / Comment(s): Heart valve disease. A grandfather had lung cancer. A grandmother had melanoma. Another grandmother had diabetes. Medications and Allergies Home Medications Medication Instructions Recorded Confirmed Type No Known Home Medications 05/02/19 11/29/20 History Allergies Allergy/AdvReac Type Severity Reaction Status Date / Time cephalexin [From Keflex] Allergy Swelling Verified 11/29/20 07:21 Surgical - Exam Vital Signs Temp Pulse Resp BP Pulse Ox 98.2 F 52 L 16 110/72 100 11/29/20 07:21 11/29/20 07:21 11/29/20 07:21 11/29/20 07:21 11/29/20 07:21 BMI 20.8 - General well developed, well nourished, no distress - Eyes normal ocular movement - ENT normal pinna - Neck no masses, trachea midline - Respiratory normal expansion, normal respiratory effort, clear to auscultation - Cardiovascular Rhythm: regular Heart Sounds: normal: S1, S2 - Abdomen Abdomen: soft - Integumentary normal turgor, scar left shoulder where basal cell carcinoma was removed using Mohs surgery - Neurologic no disoriented, no combative - Musculoskeletal normal gait - Psychiatric oriented to time, oriented to person, oriented to place, speech is normal, memory intact breast exam: BRA: 34C inspection: Bilateral grade 1 ptosis Palpation: Right breast: Multi-positional exam fibrocystic changes no dominant masses or nodules of concern Right axilla: No adenopathy of concern Left breast: Multiple positional exam very dense tissue fibrocystic changes, increased fullness in the axillary tail approximately 1 cm x 2 cm palpable fullness may correspond to lymph node seen on ultrasound Left axilla: In the area of the axillary tail probable lymph node Particular attention was paid to the 6:00 area of the left breast and no specific lesions of concern were noted in that area. Results Patient's mammogram and ultrasound reviewed with Dr. Stern Patient's note from Dr. Agrawal 11-20-20 reviewed and appreciated. Assessment and Plan Assessment: Impression: 1. Very dense bilateral breast 2. Fibrocystic breast changes 3. Family history of cancer 4. Patient personal history of basal cell carcinoma left shoulder 5. Palpable mass left breast upper outer quadrant most likely lymph nodes seen on ultrasound 6. Ultrasound abnormality 6:00 region left breast 7. Recent covert vaccination may have been what resulted in the enlarged lymph node Plan: 1. ultra-guided core biopsy of the 6:00 lesion in the breast as well as the enlarged lymph node after review with Dr. Kuo 2. Patient to follow-up after biopsy is done 3. Patient will call sooner if any questions or concerns CC: DR. Saucedo Risks and benefits of the procedure were discussed with the patient. Additionally we added biopsy of the lymph node in the upper quadrant/axillary tail of the left breast after discussion with the patient and review with Dr. Stern.
== END ==
LOC: WWCWWP 07:14
PROVIDERS: ATTEND Surgery
DX: N63.21 Unspecified lump in the left breast, upper outer quadrant (principal); N60.11 Diffuse cystic mastopathy of right breast; N60.12 Diffuse cystic mastopathy of left breast; R92.8 Other abnormal and inconclusive findings on diagnostic imaging of breast; Z85.828 Personal history of other malignant neoplasm of skin; Z80.9 Family history of malignant neoplasm, unspecified

== ENCOUNTER → 2020-12-04 | Day surgery (SDC) | payer BC ==
[2020-12-04 09:42] VITALS: BP 110/67; PULSE 60; RESP 16; TEMP 97.5
--- NOTE | 2020-12-04 12:40 | USB ---
EXAMINATION TYPE: US discontinued breast core LT DATE OF EXAM: 12/04/2020 HISTORY: R92.8, ABN MAMM Comparison: 11/20/2020 The patient presented for a possible core biopsy of the left breast. The previously noted left axilla ry lymph node which was enlarged previously has normalized at this time and biopsy is not indicated. In addition the 6:00 area of abnormal decreased echogenicity seen previously now appears to simply re flect normal breast parenchyma. This was discussed with the patient and biopsy was discontinued. Six- month follow-up left-sided breast ultrasound is advised. IMPRESSION: 1. Probably benign BI-RADS 3 Recommendation: Precautionary left breast ultrasound in 6 months.
== END ==
LOC: RADUSWWP 09:26
PROVIDERS: ATTEND Surgery
DX: R92.8 Other abnormal and inconclusive findings on diagnostic imaging of breast (principal); Z53.8 Procedure and treatment not carried out for other reasons

== ENCOUNTER → 2022-03-25 | Outpatient (CLI) | payer BC ==
[2022-03-25 08:01] VITALS: BP 112/65; PULSE 56; RESP 17; TEMP 97.8
--- NOTE | 2022-03-25 08:56 | P.HPOB ---
History of Present Illness H&P Date: 03/25/22 Chief Complaint: The patient is here for her routine gynecologic exam and ma mmogram. This is a 47-year-old 89 with an LMP of 02/20/2022. The patient's is status post vasectomy. She had slight menstrual irregularity during the past month we're she started a light flow after her menstrual periods stopped. She states she is now slightly late for her menstrual period. They have otherwise been regular and normal. She is otherwise without complaints. Her last mammogram was in November 2020. At that time she had felt a breast lump and the left breast workup was suspicious. She was scheduled for a biopsy, but the tissue normalized and no biopsy was done. This was felt to possibly be related to a Covid vaccination that she had received shortly before she felt something in the breast. She no longer feels anything in the left breast and this is her first mammogram since that time. Review of Systems The patient has gained 16 pounds over the last 3 years. She denies respiratory, cardiac, or G.I. problems. : She thinks she may be having the start of a kidney stone on the right side. She is having slight flank and right abdominal discomfort, similar to when she had a kidney stone in the past. Past Medical History Past Medical History: Cancer Additional Past Medical History / Comment(s): Basal cell skin cancer in 2012 removed from her back. Kidney stones. 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 History of Any Multi-Drug Resistant Organisms: None Reported Past Surgical History: Section Additional Past Surgical History / Comment(s): Removal of skin lesion in 2012. Past Psychological History: No Psychological Hx Reported Smoking Status: Never smoker Past Alcohol Use History: Occasional (2 per month) Past Drug Use History: None Reported Additional History: She has been since 1996. 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 - Past Family History Mother Family Medical History: Cancer Additional Family Medical History / Comment(s): Cervical and uterine cancer. Father Additional Family Medical History / Comment(s): Heart valve disease. A grandfather had lung cancer. A grandmother had melanoma. Another grandmother had diabetes. Medications and Allergies Home Medications Medication Instructions Recorded Confirmed Type No Known Home Medications 05/02/19 03/25/22 History Allergies Allergy/AdvReac Type Severity Reaction Status Date / Time cephalexin [From Keflex] Allergy Swelling Verified 03/25/22 07:57 Exam Vital Signs Temp Pulse Resp BP Pulse Ox 03/25/22 07:58 97.8 F 56 L 17 112/65 100 Intake and Output 03/24/22 03/25/22 03/25/22 22:59 06:59 14:59 Other: Weight 69.853 kg Height 5 feet 10 inches, weight 154 pounds, BMI 22.1. This is a well-developed well-nourished white female who is alert and oriented times 3 in no acute distress. HEENT: Within normal limits. NECK: Supple without mass or thyromegaly. CHEST AND LUNGS: Clear to auscultation. HEART: Regular rate and rhythm. BREASTS: Are without mass or discharge. AXILLARY EXAM: Negative for adenopathy. BACK: Negative for CVA tenderness. ABDOMEN: Soft, nontender, without palpable masses. PELVIC EXAM: Normal external genitalia. Cervix appears slightly deviated to the left and angled posteriorly. There are no cervical lesions. There is no cervical motion tenderness. The vagina appears normal. There is no unusual discharge. There is no evidence of prolapse. The uterus is slightly deviated to the left of the midline and is irregular and firm with a firm irregularity about 4 cm in size noted anteriorly, most consistent with a fibroid. The uterus is about 8-10 weeks size. The uterus is nontender. There are no palpable adne xal masses or tenderness, however, with the irregularity in the uterus and its location, it is difficult to assess the left adnexa.. RECTAL EXAM: negative for mass or tenderness and is negative for occult blood. EXTREMITIES: Nontender. IMPRESSION: 1. 47-year-old female whose is status post vasectomy with an abnormal pelvic exam due to uterine irregularity. Most likely this represents a fibroid uterus. Differential diagnosis will also include a sharply anteverted uterus or adnexal mass pushing the uterus to the left of the midline. 2. Slight menstrual irregularity during the past month. 3. Previous left breast mass more than one year ago with suspicious left breast workup which resolved at the time of her scheduled breast biopsy in November 2020. This change may have been related to the Covid vaccination prior to that time. PLAN: 1. Pap smear cotest was performed. 2. Self breast awareness was discussed with the patient. We have also discussed symptoms associated with inflammatory breast cancer. 3. Bilateral diagnostic mammogram will be done today. 4. Pelvic ultrasound will be scheduled. The order slip was given to the patient for this. 5. Osteoporosis prevention was discussed. I have stressed the importance of adequate calcium, vitamin D and regular exercise. Recommended amounts of calcium and vitamin D were also discussed. 6. The patient will keep a menstrual calendar and call if she is having menstrual irregularities or problems. 7. She was advised to return in one year for her annual well woman exam and as needed.
--- NOTE | 2022-03-25 08:59 | MM ---
Reason for Exam: Clinical finding. Last mammogram was performed 1 year(s) and 4 month(s) ago. Patient History: Menarche at age 15. First Full-Term at age 26. Other cancer. Patient used Hormonal Contraceptives for 8 years. 12/04/2020, US discontinued breast core LT on the left side. Paternal grandmother had breast cancer. Risk Values: Kami 5 year model risk: 0.9%. NCI Lifetime model risk: 9.3%. Tissue Density: The breast tissue is heterogeneously dense. This may lower the sensitivity of mammography. Findings: Analyzed By CAD. Pattern appears symmetrical and stable. On the left mediolateral oblique view upper portion a partially circumscribed rounded density remains present. This measures 1.4 cm and is stable from prior study. No significant interval changes are evident. Overall Assessment: Benign, BI-RAD 2 Management: Screening Mammogram of both breasts in 1 year. A clinical breast exam by your physician is recommended on an annual basis and results should be correlated with mammographic findings. This exam should not preclude additional follow-up of suspicious palpable abnormalities. Results were given to the patient verbally at the time of exam. Electronically signed and approved by: Shan Valderrama D.O. Radiologis
== END ==
LOC: WWCWWP 07:51
PROVIDERS: ATTEND Obstetrics & Gynecology
DX: Z12.31 Encounter for screening mammogram for malignant neoplasm of breast (principal); N92.6 Irregular menstruation, unspecified; Z88.1 Allergy status to other antibiotic agents
CPT/HCPCS: 77062; 77066

== ENCOUNTER 2022-06-18 16:52 | Emergency (ER) | payer BC ==
[2022-06-18 17:34] VITALS: TEMP 98.3
[2022-06-18 17:51] LABS: Amorphous Sediment,Urine Rare /hpf; Appearance,Urine Cloudy (Clear); Bilirubin,Urine Negative (Negative); Blood,Urine Moderate (Negative); Color,Urine Light Yellow; Glucose,Urine (UA) Negative (Negative); Ketones,Urine Negative (Negative); Leukocyte Esterase,Urine Trace (Negative); Mucus,Urine Rare /hpf; Nitrite,Urine Negative (Negative); PH, Urine 7.5 (5.0-8.0); Protein,Urine Negative (Negative); RBC,Urine 99 /hpf (0-5); Specific Gravity,Urine 1.012 (1.001-1.035); Squamous Epithelial Cell,Urine 1 /hpf (0-4); Urobilinogen,Urine <2.0 mg/dL (<2.0); WBC,Urine 2 /hpf (0-5)
--- NOTE | 2022-06-18 18:08 | XR ---
EXAMINATION TYPE: XR KUB DATE OF EXAM: 06/18/2022 COMPARISON: NONE HISTORY: Left side pain TECHNIQUE: 2 view Upright FINDINGS: Bowel gas pattern is normal. No sign of intestinal obstruction or pneumoperitoneum. Fecal p attern is normal. No sign of a mass. There are no pathologic calcifications over the kidneys. Lung ba ses are clear. IMPRESSION: Nonacute abdomen.
--- NOTE | 2022-06-18 19:37 | CT ---
EXAMINATION TYPE: CT abdomen pelvis wo con DATE OF EXAM: 06/18/2022 COMPARISON: 05/24/2020 HISTORY: Left sided flank pain and gross hematuria. CT DLP: 475.7 mGycm Automated exposure control for dose reduction was used. Images obtained from the diaphragm to the floor the pelvis with no contrast. The lung bases are clear. No pleural effusion. Heart size is normal. No pericardial effusion. Liver spleen and stomach pancreas appear intact. The bile duct are not dilated. Gallbladder is intact . There is no adrenal mass. There is enlarged left kidney with hydronephrosis. There are a few calculi in the left kidney measuring up to 3 mm. There is left-sided hydroureter. There is obstructing 5 mm c alculus in the distal left ureter. Bladder distends smoothly. No inguinal hernia. Uterus is anteverte d. No free fluid in the pelvis. No pelvic mass. The appendix is posterior and appears normal. There i s no mesenteric edema. No ascites or free air. No sign of a bowel obstruction. No sign of obstruction of the right kidney. There is 1 mm calculus posterior right kidney. The lumbar vertebrae have normal alignment. Disc spaces are normal. Posterior elements are intact. No compression fracture. The bony pelvis is intact. The hip joints are intact. IMPRESSION: Obstructing calculus at the left ureterovesical junction with left-sided hydronephrosis and hydrouret er. Bilateral renal calculi. There is clearing of the right-sided obstruction compared to old exam. N ormal appendix.
[2022-06-18] MEDS ORDERED: SODIUM CHLORIDE 0.9% 500 ML 500 ML IV ONE (20:43)
[2022-06-18] MEDS ORDERED: ONDANSETRON 4 MG/2 ML VIAL IVP STA (20:46)
[2022-06-18] MEDS ORDERED: TAMSULOSIN 0.4 MG CAP.ER.24H PO STA (20:51)
--- NOTE | 2022-06-18 20:51 | ED ---
Female Urogenital HPI - General Chief complaint: Urogenital Stated complaint: Kidney Stone Time Seen by Provider: 06/18/22 20:41 Source: patient, RN notes reviewed, old records reviewed Mode of arrival: ambulatory - History of Present Illness Initial comments: Nontoxic-appearing 47-year-old female presents to the emergency room with left lower flank and abdomen pain that started this morning. Describes pain as a dull ache 7 out of 10. Denies any fevers. Nauseated but no vomiting or diarrhea. States has history of kidney stones. She states that she does have an appointment with urology but not until August. Patient is a nonsmoker. Only surgical history is section. MD Complaint: other (left lower abd) -: days(s) (1) Severity scale (1-10): 7 Consistency: constant Improves with: none Worsens with: none - Related Data Previous Rx's Medication Instructions Recorded Ketorolac [Toradol] 10 mg PO Q6HR PRN #12 tab 06/18/22 Tamsulosin [Flomax] 0.4 mg PO DAILY #7 cap 06/18/22 Allergies Allergy/AdvReac Type Severity Reaction Status Date / Time cephalexin [From Keflex] Allergy Swelling Verified 06/18/22 17:34 Review of Systems ROS Statement: Those systems with pertinent positive or pertinent negative responses have been documented in the HPI. ROS Other: All systems not noted in ROS Statement are negative. Past Medical History Past Medical History: Cancer Additional Past Medical History / Comment(s): Basal cell skin cancer in 2013 removed from her back. Kidney stones. 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 History of Any Multi-Drug Resistant Organisms: None Reported Past Surgical History: Section Additional Past Surgical History / Comment(s): Removal of skin lesion in 2012. Past Psychological History: No Psychological Hx Reported Smoking Status: Never smoker Past Alcohol Use History: Occasional Past Drug Use History: None Reported - Past Family History Mother Family Medical History: Cancer Additional Family Medical History / Comment(s): Cervical and uterine cancer. Father Additional Family Medical History / Comment(s): Heart valve disease. A grandfather had lung cancer. A grandmother had melanoma. Another grandmother had diabetes. General Exam General appearance: alert, in no apparent distress Head exam: Present: atraumatic Eye exam: Absent: scleral icterus, conjunctival injection, periorbital swelling Respiratory exam: Present: normal lung sounds bilaterally. Absent: respiratory distress, wheezes, rales, rhonchi, stridor, chest wall tenderness, accessory muscle use Cardiovascular Exam: Present: regular rate GI/Abdominal exam: Present: soft. Absent: distended, tenderness, guarding, rebound, rigid Extremities exam: Present: normal capillary refill. Absent: pedal edema Back exam: Absent: CVA tenderness (R), CVA tenderness (L) Neurological exam: Present: alert, oriented X3 Psychiatric exam: Present: normal affect, normal mood Skin exam: Present: warm, dry, normal color. Absent: cyanosis, diaphoretic Course Vital Signs 06/18/22 06/18/22 17:31 21:50 Temperature 98.3 F Pulse Rate 68 60 Respiratory 18 16 Rate Blood Pressure 146/78 138/73 O2 Sat by Pulse 98 100 Oximetry - Reevaluation(s) Reevaluation #1: 06/18/22 21:28 Patient states pain down to 6 from 7 after Flomax Toradol and IV fluids. She was initially against narcotics however agreeable to a small dose of morphine. Time: 21:28 Medical Decision Making - Medical Decision Making Patient presents with left-sided flank and abdominal pain started today, history of kidney stones. Denies any nausea vomiting or diarrhea. No fevers. Patient was given pain medication and IVF. Labs show no evidence of leukocytosis. BMP is unremarkable. Urinalysis shows moderate blood, no bacteria present, no evidence of infection. negative. CT shows obstructing 5mm calculus left UVJ with left hydronephrosis and hydroureter. Bilateral renal calculi. Pain was managed and she is agreeable to discharge. Patient was discharged home to follow up with urology. Return to the emergency room with any new or concerning symptoms including fever, persistent nausea vomiting or increased pain. She is agreeable to this plan of care. Case was discussed with Dr Gallardo. 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73 sqM) Glucose (74-99) mg/dL Calcium (8.4-10.2) mg/dL Total Bilirubin (0.2-1.3) mg/dL AST (14-36) U/L ALT (4-34) U/L Alkaline Phosphatase (38-126) U/L Total Protein (6.3-8.2) g/dL Albumin (3.5-5.0) g/dL Urine Color Light Yellow Urine Appearance Cloudy H (Clear) Urine pH 7.5 (5.0-8.0) Ur Specific [place] 1.012 (1.001-1.035) Urine Protein Negative (Negative) Urine Glucose (UA) Negative (Negative) Urine Ketones Negative (Negative) Urine Blood Moderate H (Negative) Urine Nitrite Negative (Negative) Urine Bilirubin Negative (Negative) Urine Urobilinogen <2.0 (<2.0) mg/dL Ur Leukocyte Esterase Trace H (Negative) Urine RBC 99 H (0-5) /hpf Urine WBC 2 (0-5) /hpf Ur Squamous Epith Cells 1 (0-4) /hpf Amorphous Sediment Rare H (None) /hpf Urine Mucus Rare H (None) /hpf Urine HCG, Qual Not Detected (Not Detectd) 06/18/22 06/18/22 Range/Units 20:53 21:47 WBC 7.1 RBC 3.76 L Hgb 11.8 Hct 35.0 MCV 93.2 MCH 31.5 MCHC 33.8 RDW 13.0 Plt Count 286 MPV 7.7 Neutrophils % 72 % Lymphocytes % 15 % Monocytes % 8 % Eosinophils % 2 % Basophils % 1 % Neutrophils # 5.1 (1.3-7.7) k/uL Lymphocytes # 1.1 (1.0-4.8) k/uL Monocytes # 0.6 (0-1.0) k/uL Eosinophils # 0.2 (0-0.7) k/uL Basophils # 0.0 (0-0.2) k/uL Sodium 136 L (137-145) mmol/L Potassium 4.4 (3.5-5.1) mmol/L Chloride 100 (98-107) mmol/L Carbon Dioxide 23 (22-30) mmol/L Anion Gap 13 mmol/L BUN 21 H (7-17) mg/dL Creatinine 0.95 (0.52-1.04) mg/dL Est GFR (CKD-EPI)AfAm 82 (>60 ml/min/1.73 sqM) Est GFR (CKD-EPI)NonAf 72 (>60 ml/min/1.73 sqM) Glucose 80 (74-99) mg/dL Calcium 9.8 (8.4-10.2) mg/dL Total Bilirubin 0.7 (0.2-1.3) mg/dL AST 27 (14-36) U/L ALT 15 (4-34) U/L Alkaline Phosphatase 61 (38-126) U/L Total Protein 7.5 (6.3-8.2) g/dL Albumin 5.0 (3.5-5.0) g/dL Urine Color Urine Appearance (Clear) Urine pH (5.0-8.0) Ur Specific [place] (1.001-1.035) Urine Protein (Negative) Urine Glucose (UA) (Negative) Urine Ketones (Negative) Urine Blood (Negative) Urine Nitrite (Negative) Urine Bilirubin (Negative) Urine Urobilinogen (<2.0) mg/dL Ur Leukocyte Esterase (Negative) Urine RBC (0-5) /hpf Urine WBC (0-5) /hpf Ur Squamous Epith Cells (0-4) /hpf Amorphous Sediment (None) /hpf Urine Mucus (None) /hpf Urine HCG, Qual (Not Detectd) Disposition Clinical Impression: Kidney stone on left side, Hydronephrosis Disposition: HOME SELF-CARE Condition: Good Instructions (If sedation given, give patient instructions): Kidney Stones (ED), Hydronephrosis (ED) Additional Instructions: Take Toradol and Flomax as prescribed. Follow-up with urology this week. Return to the emergency room with any new or concerning symptoms including persistent nausea and vomiting, fevers or inability to urinate. Prescriptions: Tamsulosin [Flomax] 0.4 mg PO DAILY #7 cap Ketorolac [Toradol] 10 mg PO Q6HR PRN #12 tab PRN Reason: Pain Is patient prescribed a controlled substance at d/c from ED?: No Referrals: David Saucedo MD [Primary Care Provider] - 1-2 days Stephen Daigle MD [STAFF PHYSICIAN] - 1-2 days Time of Disposition: 22:15
[2022-06-18] MEDS ORDERED: MORPHINE SULFATE 4 MG/ML SYRINGE IVP STA (21:28)
[2022-06-18 21:32] LABS: Calcium 9.8 mg/dL (8.4-10.2); Potassium 4.4 mmol/L (3.5-5.1); Total Bilirubin 0.7 mg/dL (0.2-1.3); Total Protein 7.5 g/dL (6.3-8.2)
[2022-06-18 21:51] VITALS: BP 138/73; PULSE 60; RESP 16
[2022-06-18 22:07] LABS: Basophils % (A) 1 %; Eosinophils # (A) 0.2 k/uL (0-0.7); Eosinophils % (A) 2 %; HGB 11.8 gm/dL (11.4-16.0); Lymphocytes # (A) 1.1 k/uL (1.0-4.8); Lymphocytes % (A) 15 %; MCH 31.5 pg (25.0-35.0); MCHC 33.8 g/dL (31.0-37.0); MCV 93.2 fL (80.0-100.0); Mean Platelet Volume 7.7; Monocytes # (A) 0.6 k/uL (0-1.0); Monocytes % (A) 8 %; Neutrophils # (A) 5.1 k/uL (1.3-7.7); Neutrophils % (A) 72 %; Platelet Count 286 k/uL (150-450); RBC 3.76 m/uL (3.80-5.40); WBC 7.1 k/uL (3.8-10.6)
== END 2022-06-18 22:33 | disposition home or self-care (01) ==
LOC: EC 16:52
DX: N13.30 Unspecified hydronephrosis (principal); N20.0 Calculus of kidney; Z88.1 Allergy status to other antibiotic agents; Z79.899 Other long term (current) drug therapy
CPT/HCPCS: 36415; 80053; 85025; 81001; 81025; 74018; 74176; 99284; 96374; 96375; J2270; J2405

== ENCOUNTER → 2022-09-10 | Outpatient (CLI) | payer BC ==
--- NOTE | 2022-09-10 08:14 | US ---
EXAMINATION TYPE: US kidneys/renal and bladder DATE OF EXAM: 09/10/2022 COMPARISON: CT 06/18/2022 CLINICAL HISTORY: N13.2 HYDRONEPHROSIS WITH RENAL AND URETERAL CALCULOUS. Patient believes she has pa ssed the left renal stone. No history of stent placement EXAM MEASUREMENTS: Right Kidney: 11.6 x 3.7 x 4.8 cm Left Kidney: 11.7 x 6.1 x 5.1 cm Right Kidney: Mild pelviectasis Left Kidney: Mild pelviectasis. No obvious stones visualized on today's exam Bladder: wnl Bilateral Jets seen: Yes No nephrolithiasis is seen. No masses are identified. The urinary bladder is anechoic. Bilateral u reteral jets are seen. IMPRESSION: Mild pelvicaliectasis without eduardo hydronephrosis.
== END | disposition home or self-care (01) ==
LOC: RADUSWWP 07:01
PROVIDERS: ATTEND Urology
DX: N13.2 Hydronephrosis with renal and ureteral calculous obstruction (principal); N28.89 Other specified disorders of kidney and ureter
CPT/HCPCS: 76770

== ENCOUNTER → 2022-12-11 | Outpatient (CLI) | payer BC ==
[2022-12-11 20:05] LABS: Anion Gap 12.7 mmol/L (10.00-18.00); Carbon Dioxide 28.3 mmol/L (20.0-27.5); Potassium 3.5 mmol/L (3.5-5.5)
== END | disposition home or self-care (01) ==
LOC: LABWHC1 10:48
PROVIDERS: ATTEND Urology
DX: N20.0 Calculus of kidney (principal); R82.994 Hypercalciuria
CPT/HCPCS: 36415; 80051

== ENCOUNTER → 2023-07-27 | Outpatient (CLI) | payer BC ==
[2023-07-27 15:41] VITALS: BP 109/69; PULSE 76; RESP 16; TEMP 98.3
--- NOTE | 2023-07-27 16:18 | P.HPOB ---
History of Present Illness H&P Date: 07/27/23 Chief Complaint: The patient is here for her routine gynecologic exam and ma mmogram. This is a 48 year old with an LMP of 06/04/2023. The patient's is status post vasectomy. She states she found out her was unfaithful about 6 weeks ago. Her states that it was only on one occasion. The patient is requesting STD testing. She has not been sexually active with him since she found this out. The patient denies being sexually active with anyone other than her . She denies any unusual discharge, odor or genital lesions. Her menstrual periods have been somewhat irregular every 1-3 months. She does have some hot flashes that are tolerable. Review of Systems She has lost about 4 pounds over the past year. She attributes this to the anxiety produced by her 's infidelity. She denies respiratory or GI problems. Cardiac: Occasional palpitations which she attributes to some anxiety from her situation. Past Medical History Past Medical History: Cancer Additional Past Medical History / Comment(s): Basal cell skin cancer in 2012 removed from her back. Kidney stones. 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 History of Any Multi-Drug Resistant Organisms: None Reported Past Surgical History: Section Additional Past Surgical History / Comment(s): Removal of skin lesion in 2012. Past Psychological History: No Psychological Hx Reported Smoking Status: Never smoker Past Alcohol Use History: Occasional (About 4 drinks per month.) Past Drug Use History: None Reported Additional Drug Use History / Comment(s): She tried marijuana once but did not like it. Additional History: She has been since 1996. 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 - Past Family History Mother Family Medical History: Cancer Additional Family Medical History / Comment(s): Cervical and uterine cancer. Father Additional Family Medical History / Comment(s): Heart valve disease. A grandfather had lung cancer. A grandmother had melanoma. Another grandmother had diabetes. Medications and Allergies Home Medications Medication Instructions Recorded Confirmed Type Ketorolac [Toradol] 10 mg PO Q6HR PRN #12 tab 06/18/22 07/27/23 Rx Allergies Allergy/AdvReac Type Severity Reaction Status Date / Time cephalexin [From Keflex] Allergy Swelling Verified 07/27/23 15:19 Exam Vital Signs Temp Pulse Resp BP Pulse Ox 07/27/23 15:21 98.3 F 76 16 109/69 100 Intake and Output 07/27/23 07/27/23 07/27/23 06:59 14:59 22:59 Other: Weight 68.039 kg Height 5 feet 10 inches, weight 150 pounds, BMI 21.5. This is a well-developed well-nourished white female who is alert and oriented times 3 in no acute distress. HEENT: Within normal limits. NECK: Supple without mass or thyromegaly. CHEST AND LUNGS: Clear to auscultation. HEART: Regular rate and rhythm. BREASTS: Are without mass or discharge. AXILLARY EXAM: Negative for adenopathy. BACK: Negative for CVA tenderness. ABDOMEN: Soft, nontender, without palpable masses. PELVIC EXAM: Normal external genitalia. Cervix and vagina appear normal. There is a small amount of mucousy slightly yellow discharge without odor. There is no evidence of prolapse. The uterus is midposition, with a 4 x 4 cm anterior fibroid. There are no palpable adnexal masses or tenderness. RECTAL EXAM: negative for mass or tenderness and is negative for occult blood. EXTREMITIES: Nontender. IMPRESSION: 1. 48-year-old perimenopausal female whose is status post vasectomy with a stable uterine fibroid which is asymptomatic. 2. Mild oligomenorrhea with vasomotor symptoms consistent with her perimenopausal state. 3. Spousal infidelity discovered about 6 weeks ago. 4. Slight mucousy discharge which may be a physiologic discharge but we will also rule out other types of vaginal infections or cervicitis. PLAN: 1. Pap smear was deferred since she had a negative Pap smear cotest on 03/25/2022. 2. Self breast awareness was discussed with the patient. We have also discussed symptoms associated with inflammatory breast cancer. 3. Screening mammogram was done today. 4. GC and Chlamydia testing was obtained from the cervix. Affirm vaginitis panel was obtained from the vagina. 5. Blood STD tests will include HIV, RPR, hepatitis the surface antigen, and hepatitis C antibody. The order slip was given to the patient for this and she states she will have it drawn today. 6. We have had a long discussion regarding spousal infidelity, STDs, and the importance of doing all she can to avoid being exposed to STDs. 7. I recommended that she discuss with her PCP the options for colorectal cancer screening. 8. We will continue to follow the fibroid uterus conservatively. She will call if she thinks it is causing her problems. 9. She was advised to return in one year for her annual well woman exam and as needed.
[2023-07-28 02:06] LABS: Hepatitis B Surface Antigen Nonreactive; Hepatitis C IgG Antibody Nonreactive
[2023-07-28 02:52] LABS: HIV 2 AB Non-Reactive (Non-Reactive); HIV AB P24 Non-Reactive (Non-Reactive); HIV P24 AG Non-Reactive (Non-Reactive)
[2023-07-28 14:58] LABS: Gardnerella Negative (Negative); Trichomonas Negative (Negative)
[2023-07-28 15:06] LABS: C. trachomatis,PCR Negative (Negative)
[2023-07-28 15:18] LABS: N. gonorrhoeae,PCR Negative (Negative)
--- NOTE | 2023-07-28 16:05 | MM ---
Reason for Exam: Screening (asymptomatic). Last mammogram was performed 1 year(s) and 4 month(s) ago. Patient History: Menarche at age 15. First Full-Term at age 26. Patient has history of breast feeding. Other cancer. Patient used Hormonal Contraceptives for 8 years. 12/04/2020, US discontinued breast core LT on the left side. Paternal grandmother had breast cancer. Risk Values: Kami 5 year model risk: 0.9%. NCI Lifetime model risk: 9.2%. Prior Study Comparison: 05/02/2019 Bilateral Screening Mammogram, [facility]. 11/20/2020 Bilateral Diagnostic Mammogram, [facility]. 03/25/2022 Bilateral MG 3D diag mammo w/cad [facility], [facility]. Tissue Density: The breast tissue is heterogeneously dense. This may lower the sensitivity of mammography. Findings: Analyzed By CAD. Pattern appears symmetrical and stable. No significant interval change is evident. No suspicious groups of microcalcifications, spiculated or lobular masses, architectural distortion or other secondary signs of malignancy are mammographically apparent. Overall Assessment: Benign, BI-RAD 2 Management: Screening Mammogram of both breasts in 1 year. A negative mammogram report should not preclude additional follow up of suspicious palpable abnormalities. Patient should continue monthly self breast exam. A clinical breast exam by your physician is recommended on an annual basis and results should be correlated with mammographic findings. Electronically signed and approved by: Shan Valderrama D.O. Radiologis
== END ==
LOC: WWCWWP 14:53
PROVIDERS: ATTEND Obstetrics & Gynecology
DX: Z12.31 Encounter for screening mammogram for malignant neoplasm of breast (principal); C80.1 Malignant (primary) neoplasm, unspecified; N91.5 Oligomenorrhea, unspecified; F12.90 Cannabis use, unspecified, uncomplicated; Z78.0 Asymptomatic menopausal state; Z63.0 Problems in relationship with spouse or partner; Z87.442 Personal history of urinary calculi; Z85.828 Personal history of other malignant neoplasm of skin; Z88.1 Allergy status to other antibiotic agents
CPT/HCPCS: 77063; 77067; 86780; 86803; 87340; 87390; 87480; 87491; 87510; 87591; 87660

== ENCOUNTER → 2024-08-08 | Outpatient (CLI) | payer BC ==
[2024-08-08 09:47] VITALS: BP 135/85; RESP 16; TEMP 97.9
--- NOTE | 2024-08-08 10:15 | P.HPOB ---
History of Present Illness H&P Date: 08/08/24 Chief Complaint: The patient is here for her routine gynecologic exam and ma mmogram. This is a 49-year-old -1-0-2 with an LMP of 09/29/2023. The patient's is status post vasectomy. Menstrual periods have been very infrequent and she believes she has only had the 1 menstrual period during the past year. She states she has had a fair amount of hot flashes which are about the same as last year. She is otherwise without gynecologic complaints. She states that counseling marriage has been successful. has also been attending AA meetings and they have undergone couples counseling. Review of Systems The patient has gained 6 pounds over the last year. She denies respiratory, cardiac, or G.I. problems. Past Medical History Past Medical History: Cancer Additional Past Medical History / Comment(s): Basal cell skin cancer in 2012 removed from her back. Kidney stones. 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 History of Any Multi-Drug Resistant Organisms: None Reported Past Surgical History: No Surgical Hx Reported, Section Additional Past Surgical History / Comment(s): Removal of skin lesion in 2012. Past Psychological History: No Psychological Hx Reported Smoking Status: Never smoker Past Alcohol Use History: Occasional (1 drink per month.) Past Drug Use History: None Reported Additional Drug Use History / Comment(s): She tried marijuana once but did not like it. Additional History: She has been since 1996. 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 - Past Family History Mother Family Medical History: Cancer Additional Family Medical History / Comment(s): Cervical and uterine cancer. Plasmablastic lymphoma. Father Additional Family Medical History / Comment(s): Heart valve disease. A grandfather had lung cancer. A grandmother had melanoma. Another grandmother had diabetes. Medications and Allergies Home Medications Medication Instructions Recorded Confirmed Type No Known Home Medications 08/08/24 08/08/24 History Allergies Allergy/AdvReac Type Severity Reaction Status Date / Time cephalexin [From Keflex] Allergy Swelling Verified 08/08/24 09:33 Exam Vital Signs Temp Resp BP Pulse Ox 08/08/24 09:34 97.9 F 16 135/85 100 Intake and Output 08/07/24 08/08/24 08/08/24 22:59 06:59 14:59 Other: Weight 70.76 kg Height 5 feet 11 inches, weight 156 pounds, BMI 21.8 This is a well-developed well-nourished white female who is alert and oriented times 3 in no acute distress. HEENT: Within normal limits. NECK: Supple without mass or thyromegaly. CHEST AND LUNGS: Clear to auscultation. HEART: Regular rate and rhythm. BREASTS: Are without mass or discharge. AXILLARY EXAM: Negative for adenopathy. BACK: Negative for CVA tenderness. ABDOMEN: Soft, nontender, without palpable masses. PELVIC EXAM: Normal external genitalia with minimal atrophy. Cervix and vagina appear normal with minimal atrophy. There is no unusual discharge. There is no evidence of prolapse. The uterus is midposition, about 8 to 10-week size and nontender. There is a palpable anterior uterine fibroid measuring approximately 4 cm. This is nontender. There are no palpable adnexal masses or tenderness. RECTAL EXAM: Rectovaginal exam is negative for mass or tenderness and is negative for occult blood. EXTREMITIES: Nontender. IMPRESSION: 1. 57-year-old perimenopausal female with increasing oligomenorrhea and vasomotor symptoms. 2. Fibroid uterus which is asymptomatic. This seems stable, or slightly smaller than her 2021 ultrasound and exam. PLAN: 1. Pap smear was deferred since she had a negative Pap smear cotest on 03/25/2022. 2. Self breast awareness was discussed with the patient. We have also discussed symptoms associated with inflammatory breast cancer. 3. Screening mammogram will be done today. 4. Osteoporosis prevention was discussed. I have stressed the importance of adequate calcium, vitamin D and regular exercise. Recommended amounts of calcium and vitamin D were also discussed. 5. She states she does not feel STD testing is necessary at this time. 6. I recommended screening colonoscopy or other colorectal cancer screening. She states she will be arranging the colonoscopy through her PCP as this has already been recommended by him. 7. She was advised to return in one year for her annual well woman exam.
--- NOTE | 2024-08-11 16:44 | MM ---
Reason for Exam: Screening (asymptomatic). Last screening mammogram was performed 12 month(s) ago. Patient History: Menarche at age 15. First Full-Term at age 26. Premenopausal. Patient has history of breast feeding. Other cancer. Patient used Hormonal Contraceptives for 8 years. 12/04/2020, US discontinued breast core LT on the left side. Paternal grandmother had breast cancer. Risk Values: Kami 5 year model risk: 1.0%. NCI Lifetime model risk: 9.1%. Prior Study Comparison: 11/20/2020 Bilateral Diagnostic Mammogram, [facility]. 03/25/2022 Bilateral MG 3D diag mammo w/cad [facility], [facility]. 07/27/2023 Bilateral MG 3D screening mammo w/cad, [facility]. Tissue Density: The breasts are heterogeneously dense, which may obscure small masses. Findings: Analyzed By CAD. There is no suspicious group of microcalcifications or new suspicious mass in either breast. Overall Assessment: Negative, BI-RAD 1 Management: Screening Mammogram of both breasts in 1 year. Patient should continue monthly self-breast exams. A clinical breast exam by your physician is recommended on an annual basis. This exam should not preclude additional follow-up of suspicious palpable abnormalities. Note on Kami scores and lifetime risk: 1. A Kami score greater than 3% is considered moderate risk. If this is the case, consider specialist referral to assess eligibility for a risk reducing agent. 2. If overall lifetime risk for the development of breast cancer is 20% or higher, the patient may qualify for future screening with alternating mammogram and breast MRI. [facility], , 08/11/2024 4:41 PM. Electronically signed and approved by: Bakari Stern M.D. Radiologist
== END ==
LOC: WWCWWP 09:20
PROVIDERS: ATTEND Obstetrics & Gynecology
DX: Z12.31 Encounter for screening mammogram for malignant neoplasm of breast (principal); N91.5 Oligomenorrhea, unspecified; N95.1 Menopausal and female climacteric states; D25.9 Leiomyoma of uterus, unspecified; Z80.3 Family history of malignant neoplasm of breast
CPT/HCPCS: 77063; 77067